=== PATIENT | male | born 1995 | race Caucasian/White ===

== ENCOUNTER 2020-02-23 01:02 | Emergency (ER) | payer SELFPAY ==
[~2020-02-23] VITALS: Ht 180.3 cm; Wt 79.4 kg
--- NOTE | 2020-02-23 01:55 | NUR ---
Dr. Curiel at bedside for MSE.
[2020-02-23] MEDS ORDERED: diphenhydrAMINE 50 MG/1 ML VIAL IM ONE (02:00)
[2020-02-23] MEDS ORDERED: diphenhydrAMINE 50 MG/1 ML VIAL ONE (02:04)
[2020-02-23] MEDS ORDERED: CYCLOBENZAPRINE HCL 10 MG TABLET ONE (02:53)
[2020-02-23] MEDS ORDERED: CYCLOBENZAPRINE HCL 10 MG TABLET PO ONE (03:00)
[2020-02-23] MEDS ORDERED: IBUPROFEN 800 MG TABLET ONE (03:21)
[2020-02-23] MEDS ORDERED: IBUPROFEN 800 MG TABLET PO ONE (03:30)
--- NOTE | 2020-02-23 03:56 | NUR ---
Patient discharged to home in stable condition. Written and verbal after care instructions given. Patient verbalizes understanding of instructions. Stressed follow up or return to ER for worsening s/s. Patient ambulated out of ER with steady gait, no acute signs of distress, VSS, all belongings taken, instructed not to drive.
[2020-02-23 03:57] VITALS: BP 120/80
== END 2020-02-23 03:57 | disposition home or self-care (01) ==
LOC: ER 01:04
DX: M43.6 Torticollis (principal)
CPT/HCPCS: 96372; 99283; J1200; A4663